=== PATIENT | female | born 2000 | race African-American/Black ===

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

== ENCOUNTER 2025-04-18 21:08 | Emergency (ER) | payer MEDICAID, OTHER ==
[~2025-04-18] VITALS: Ht 160 cm; Wt 54.5 kg
[~2025-04-18 21:08] MED LIST: PREN1TAB78 MT
[2025-04-18 21:43] VITALS: BP 126/79; TEMP 36.8; O2SAT 100
[2025-04-18 21:49] VITALS: PULSE 79; RESP 26; O2SAT 99
== END 2025-04-19 00:30 | disposition left against medical advice (07) ==
LOC: ER 21:08
DX: R11.2 Nausea with vomiting, unspecified (principal); Z53.21 Procedure and treatment not carried out due to patient leaving prior to being seen by health care provider